=== PATIENT | female | born 1980 | race Caucasian/White ===

== ENCOUNTER 2020-09-22 06:27 | Day surgery (SDC) | payer BC ==
[~2020-09-22 06:27] MED LIST: Lactated Ringers 1,000 ML IV SCH
[2020-09-22] MEDS ORDERED: fentaNYL 100 MCG/2 ML SDV ONE (07:00)
[2020-09-22] MEDS ORDERED: Midazolam 1 MG/ML 2 ML SDV ONE (07:00)
[2020-09-22] MEDS ORDERED: Propofol 200 MG/20 ML SDV ONE ×3 (07:01→08:40)
[2020-09-22] MEDS ORDERED: Succinylcholine/Sod PF 100 MG/5 ML SYRINGE IV ONE (07:07)
--- NOTE | 2020-09-22 07:07 | PCM.PREANE ---
Preanesthetic Assessment - Anesthesia/Transfusion/Family Hx Anesthesia History: Prior Anesthesia Without Reaction Family History of Anesthesia Reaction: No Transfusion History: No Prior Transfusion(s) - Review of Systems General: No Symptoms Pulmonary: No Symptoms Cardiovascular: No Symptoms Gastrointestinal: No Symptoms Neurological: No Symptoms Other: Reports: None - Physical Assessment NPO Status Date: 09/22/20 NPO Status Time: 00:05 Vital Signs: Last Vital Signs Temp 97.5 F 09/22/20 06:33 Pulse 87 09/22/20 06:33 Resp 15 09/22/20 06:33 BP 144/80 H 09/22/20 06:33 Pulse Ox 95 09/22/20 06:33 Height: 5 ft 2.5 in Weight: 143 lb ASA Class: 2 Mental Status: Alert & Oriented x3 Airway Class: Mallampati = 2 Dentition: Reports: Normal Dentition ROM/Head Extension: Full Lungs: Clear to Auscultation, Normal Respiratory Effort Cardiovascular: Regular Rate, Regular Rhythm - Lab Values: Laboratory Last Values WBC 7.82 K/uL (4.0-11.0) 09/21/20 09:36 RBC 4.64 M/uL (4.30-5.90) 09/21/20 09:36 Hgb 15.1 g/dL (12.0-16.0) 09/21/20 09:36 Hct 44.4 % (36.0-46.0) 09/21/20 09:36 MCV 95.7 fL (80.0-98.0) 09/21/20 09:36 MCH 32.5 pg (27.0-32.0) H 09/21/20 09:36 MCHC 34.0 g/dL (31.0-37.0) 09/21/20 09:36 RDW Std Deviation 43.5 fl (28.0-62.0) 09/21/20 09:36 RDW Coeff of Ema 13 % (11.0-15.0) 09/21/20 09:36 Plt Count 257 K/uL (150-400) 09/21/20 09:36 MPV 11.00 fL (7.40-12.00) 09/21/20 09:36 Nucleated RBC % 0.0 /100WBC 09/21/20 09:36 Nucleated RBCs # 0 K/uL 09/21/20 09:36 Urine HCG, Qual NEGATIVE (NEGATIVE) 09/22/20 06:25 - Allergies Allergies/Adverse Reactions: Allergies Allergy/AdvReac Type Severity Reaction Status Date / Time No Known Allergies Allergy Verified 09/15/20 10:18 - Anesthesia Plan Pre-Op Medication Ordered: None - Acknowledgements Anesthesia Type Planned: General Anesthesia Pt an Appropriate Candidate for the Planned Anesthesia: Yes Alternatives and Risks of Anesthesia Discussed w Pt/Guardian: Yes Pt/Guardian Understands and Agrees with Anesthesia Plan: Yes Additional Comments: npo after mn no cv or pulmonary problems tob 1 pack per month etoh occ par no questions PreAnesthesia Questionnaire HEENT History: Reports: None Cardiovascular History: Reports: None Respiratory History: Reports: None Gastrointestinal History: Reports: None Genitourinary History: Reports: None IRRIGATION SPECIALIST History: Reports: Dysfunctional Uterine Bleeding, Musculoskeletal History: Reports: None Neurological History: Reports: None Psychiatric History: Reports: None Endocrine/Metabolic History: Reports: None Hematologic History: Reports: None Immunologic History: Reports: None Oncologic (Cancer) History: Reports: None Dermatologic History: Reports: None - Past Surgical History Head Surgeries/Procedures: Reports: None HEENT Surgical History: Reports: Tonsillectomy Cardiovascular Surgical History: Reports: None Respiratory Surgical History: Reports: None GI Surgical History: Reports: None Female Surgical History: Reports: Breast Implant, Section, Tubal Ligation, Other (See Below) Other Female Surgeries/Procedures: ETOP x3 Endocrine Surgical History: Reports: None Neurological Surgical History: Reports: None Musculoskeletal Surgical History: Reports: None Oncologic Surgical History: Reports: None Dermatological Surgical History: Reports: Plastic Surgical Reconstruction/Repair - SUBSTANCE USE Tobacco Use Status *Q: Current Some Day Tobacco User - HOME MEDS Home Medications: Home Meds . [No Known Home Meds] 09/15/20 [History] - CURRENT (IN HOUSE) MEDS Current Meds: Current Medications Lactated Ringer's (Ringers, Lactated) 1,000 mls @ 125 mls/hr IV [facility]ED [facility] Last Admin: 09/22/20 06:50 Dose: 125 mls/hr Documented by: Discontinued Medications Fentanyl (Fentanyl 100 Mcg/2 Ml Sdv) Confirm Administered Dose 100 mcg .ROUTE .STK-MED ONE Stop: 09/22/20 07:01 Midazolam HCl (Midazolam 1 Mg/Ml 2 Ml Sdv) Confirm Administered Dose 2 mg .ROUTE .STK-MED ONE Stop: 09/22/20 07:01 Propofol (Propofol 200 Mg/20 Ml Sdv) Confirm Administered Dose 200 mg .ROUTE .STK-MED ONE Stop: 09/22/20 07:02
[2020-09-22] MEDS ORDERED: Ondansetron 4 MG/2 ML SDV ONE (08:16)
[2020-09-22] MEDS ORDERED: Dexamethasone 4 MG/ML 5 ML MDV ONE (08:16)
[2020-09-22] MEDS ORDERED: Ketorolac 30 MG/ML SDV IVPUSH ONE (08:32)
--- NOTE | 2020-09-22 08:36 | PCM.OPNOTE ---
- General Post-Op/Procedure Note Date of Surgery/Procedure: 09/22/20 Operative Procedure(s): Diagnostic hysteroscopy. Dilation and curettage. Any endometrial ablation Findings: Normal appearing endometrial cavity Cervix sound to 5cm Pre Op Diagnosis: Heavy menstrual bleeding. Dysmenorrhea Post-Op Diagnosis: Same Anesthesia Technique: General LMA Primary Surgeon: Ina Dubose Pathology: Endometrial curettings Fluid Replacement, Intraop: 600 EBL in mLs: 5 Complications: None Condition: Good Free Text/Narrative:: Hysteroscopy fluid deficit 45cc NS
--- NOTE | 2020-09-22 09:00 | PCM.POSTAN ---
POST ANESTHESIA ASSESSMENT - MENTAL STATUS Mental Status: Alert (no problems), Oriented - VITAL SIGNS Vital Signs: Last Vital Signs Temp 97.7 F 09/22/20 08:32 Pulse 91 09/22/20 08:53 Resp 15 09/22/20 08:53 BP 120/81 09/22/20 08:53 Pulse Ox 96 09/22/20 08:53 - RESPIRATORY Respiratory Status: Respiratory Rate WNL, Airway Patent, O2 Saturation Stable - CARDIOVASCULAR CV Status: Pulse Rate WNL, Blood Pressure Stable - GASTROINTESTINAL GI Status: No Symptoms - POST OP HYDRATION Hydration Status: Adequate & Stable
--- NOTE | 2020-09-22 10:40 | PCM48HPAN ---
Post Anesthesia Note - EVALUATION WITHIN 48HRS OF ANESTHETIC Vital Signs in Normal Range: Yes Patient Participated in Evaluation: Yes Respiratory Function Stable: Yes Airway Patent: Yes Cardiovascular Function Stable: Yes Hydration Status Stable: Yes Pain Control Satisfactory: Yes Nausea and Vomiting Control Satisfactory: Yes Mental Status Recovered: Yes Vital Signs: Last Vital Signs Temp 97.7 F 09/22/20 08:32 Pulse 76 09/22/20 09:15 Resp 15 09/22/20 09:15 BP 116/75 09/22/20 09:15 Pulse Ox 96 09/22/20 09:15
--- NOTE | 2020-09-22 13:37 | OR ---
SURGEON: Ina Dubose MD DATE OF PROCEDURE: 09/22/2020 PREOPERATIVE DIAGNOSES: 1. A 39-year-old with heavy menstrual bleeding. 2. Dysmenorrhea. 3. History of bilateral tubal ligation. POSTOPERATIVE DIAGNOSES: 1. A 39-year-old with heavy menstrual bleeding. 2. Dysmenorrhea. 3. History of bilateral tubal ligation. PROCEDURES: 1. Diagnostic hysteroscopy. 2. Dilation and curettage. 3. Any endometrial ablation. PRIMARY SURGEON: Ina Dubose MD ANESTHESIA: General endotracheal with LMA. ESTIMATED BLOOD LOSS: 5 mL. INTRAVENOUS FLUIDS: 600 mL, hysteroscopy deficit 45 mL normal saline. PATHOLOGY: Endometrial curetting. OPERATIVE FINDINGS: Normal endometrial cavity without abnormal structures, polyps, or fibroids identified. Normal tubal ostia bilaterally. The cervix sounded to 5 cm. COMPLICATIONS: None. INDICATIONS: This is a 39-year-old patient who was seen in clinic for heavy menstrual bleeding, status post bilateral tubal ligation in 2017. She reported to need a super tampon every 1 to 1.5 hours. She also reported dysmenorrhea and clots during her periods. In-office endometrial biopsy showed proliferative endometrium without hyperplasia or atypia. An ultrasound was normal without suspicion for polyps or fibroids. Options for heavy menstrual bleeding including medical and surgical were reviewed with the patient, and she desired an endometrial ablation. The risks and benefits were discussed with patient, and consent was obtained prior to surgery. PROCEDURE IN DETAIL: The patient was taken to the operating room where general LMA was obtained without difficulty. She was placed in dorsal lithotomy position with legs in Yellofin stirrups. She was prepared and draped in normal sterile fashion. A Graves speculum was inserted into the vagina, and an Allis clamp was used to grasp the cervix. The cervix was dilated to a size 6 Hegar dilator. The diagnostic hysteroscope was then introduced into the uterine cavity, and the uterus distended with normal saline. The cavity was examined and found to be normal shape without polyps. Both tubal ostia were visualized. The hysteroscope was then removed, and the cervix was further dilated to 8 mm. A small curette was introduced in the cavity, and a gentle thorough curettage was performed. Sample sent to Pathology. The cervix was sounded to 5 cm. The Any endometrial ablation device was then opened. The instrument was set to the correct cervical length and introduced into the uterine cavity. The obstructing balloon was insufflated. The fan was fully deployed with gentle movement. The device was started, and a total burn time was 120 seconds. The fan was retracted, and the device was removed. The Allis clamp was removed, and the cervix was examined for bleeding. Hemostasis was noted. The Graves speculum was removed. The patient tolerated the procedure well and was awakened and taken to recovery room in stable condition. All sponge counts were correct. [id number] / MODL /[id number]
== END 2020-09-22 09:20 | disposition home or self-care (01) ==
LOC: MW.SDS 06:27
PROVIDERS: ATTEND Obstetrics & Gynecology
DX: N85.8 Other specified noninflammatory disorders of uterus (principal); N92.0 Excessive and frequent menstruation with regular cycle; N94.6 Dysmenorrhea, unspecified; F17.210 Nicotine dependence, cigarettes, uncomplicated; Z98.890 Other specified postprocedural states
CPT/HCPCS: 36415; 58563; 81025; 85027; 88305; J0330; J1100; J1885; J2250; J2405; J2704; J3010; J7120; 00952